=== PATIENT | male | born 2005 | race Caucasian/White ===

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

== ENCOUNTER 2024-06-26 19:24 | Emergency (ER) | payer MEDICAID ==
[~2024-06-26] VITALS: Ht 167.6 cm; Wt 65.9 kg
[~2024-06-26 19:24] MED LIST changes: +CHLO473M13 PO; -CHLO473M3 PO
[2024-06-26] MEDS ORDERED: AMOX500C2 PO (20:17)
[2024-06-26] MEDS ORDERED: CIPR10DR LEFT EAR (20:17)
[2024-06-26] MEDS: amoxicillin 250mg capsule PO ONE (20:31)
[2024-06-26 20:33] VITALS: BP 118/82; PULSE 69; RESP 18; TEMP 98.7; O2SAT 99
== END 2024-06-26 20:34 | disposition home or self-care (01) ==
LOC: ER 19:25
DX: H66.92 Otitis media, unspecified, left ear (principal); H60.92 Unspecified otitis externa, left ear; Z79.2 Long term (current) use of antibiotics; Z79.899 Other long term (current) drug therapy
CPT/HCPCS: 99283

== ENCOUNTER 2024-07-02 12:31 | Emergency (ER) | payer MEDICAID ==
[~2024-07-02] VITALS: Ht 167.6 cm; Wt 65.9 kg
[~2024-07-02 12:31] MED LIST changes: +AMOX500C2 PO; +CIPR10DR LEFT EAR
[2024-07-02 13:52] VITALS: BP 129/68; PULSE 90; RESP 16; TEMP 98.1; O2SAT 99
== END 2024-07-02 13:57 | disposition home or self-care (01) ==
LOC: ER 12:32
DX: M25.462 Effusion, left knee (principal); Z79.2 Long term (current) use of antibiotics; Z79.899 Other long term (current) drug therapy
CPT/HCPCS: 73564; 99283